=== PATIENT | female | born 1970 | race American Indian/Alaskan Native ===

== ENCOUNTER 2018-11-30 16:48 | Emergency (ER) | payer OTHER ==
[2018-11-30 16:59] VITALS: BP 139/86
--- NOTE | 2018-11-30 18:23 | Emergency Department Report ---
ED Lower Extremity HPI - General Chief Complaint: Extremity Injury, Lower Stated Complaint: LEFT LEG PAIN Time Seen by Provider: 11/30/18 18:08 Source: patient, family Mode of arrival: Ambulatory Limitations: No Limitations - History of Present Illness Initial Comments: This is a 47-year-old female came in reporting that she was horse playing around with her boyfriend and she ended up falling and landed in the split position and complaining the left thigh pain. She reports that she cannot walk because it hurt so much. Pain is 8 out of 10 and crampy and achy. Denies any head injury. Denies any bleeding or laceration or bruising. Pain is worse with movement and better at rest. She says she took Advil and went to sleep and then she woke up and still with worsening pain. MD Complaint: thigh injury, fall -: This afternoon Injury: Thigh: Left (pain after injury) Type of Injury: other (fall and landed in the split position) Place: home Severity: severe Severity scale (0 -10): 8 Improves With: rest Worsens With: weight bearing, movement, palpation Context: fall Associated Symptoms: able to partially bear weight, other (patient drove herself to the hospital). denies: snap/pop sensation, swelling, numbness, tingling Treatments Prior to Arrival: NSAIDS - Related Data Previous Rx's Medication Instructions Recorded Last Taken Type Lisinopril [Zestril TAB] 20 mg PO QDAY #30 tablet 06/19/14 Unknown Rx Sulfamethoxazole/Trimethoprim 1 each PO BID #14 tablet 06/19/14 Unknown Rx [Bactrim Ds] hydroCHLOROthiazide [Hctz] 12.5 mg PO QDAY #30 capsule 06/19/14 Unknown Rx predniSONE [Deltasone] 20 mg PO QDAY 5 Days tab 06/19/14 Unknown Rx Cyclobenzaprine [Flexeril] 10 mg PO TID PRN #12 tablet 11/30/18 Unknown Rx Ibuprofen [Motrin] 800 mg PO Q8HR PRN #12 tablet 11/30/18 Unknown Rx Allergies Allergy/AdvReac Type Severity Reaction Status Date / Time codeine Allergy Itching Verified 06/19/14 11:56 ED Review of Systems ROS: Stated complaint: LEFT LEG PAIN Other details as noted in HPI Constitutional: denies: chills, fever Respiratory: denies: cough, shortness of breath, wheezing Cardiovascular: denies: chest pain, palpitations, edema, syncope Gastrointestinal: denies: abdominal pain, nausea, vomiting Genitourinary: denies: hematuria Musculoskeletal: arthralgia, myalgia. denies: back pain, joint swelling Skin: denies: rash Neurological: abnormal gait. denies: headache, weakness, numbness, paresthesias, vertigo ED Past Medical Hx - Past Medical History Previous Medical History?: Yes Hx Hypertension: Yes - Surgical History Past Surgical History?: Yes Additional Surgical History: partial hysterectomy - Family History Family history: hypertension - Social History Smoking Status: Current Every Day Smoker Substance Use Type: Alcohol - Medications Home Medications: Home Medications Medication Instructions Recorded Confirmed Last Taken Type Lisinopril [Zestril TAB] 20 mg PO QDAY #30 tablet 06/19/14 Unknown Rx Sulfamethoxazole/Trimethoprim 1 each PO BID #14 tablet 06/19/14 Unknown Rx [Bactrim Ds] hydroCHLOROthiazide [Hctz] 12.5 mg PO QDAY #30 capsule 06/19/14 Unknown Rx predniSONE [Deltasone] 20 mg PO QDAY 5 Days tab 06/19/14 Unknown Rx Cyclobenzaprine [Flexeril] 10 mg PO TID PRN #12 tablet 11/30/18 Unknown Rx Ibuprofen [Motrin] 800 mg PO Q8HR PRN #12 tablet 11/30/18 Unknown Rx ED Physical Exam - General Limitations: No Limitations General appearance: alert, in no apparent distress - Head Head exam: Present: atraumatic, normocephalic, normal inspection, other (normal exam) - Eye Eye exam: Present: normal appearance, PERRL, EOMI Pupils: Present: normal accommodation - ENT ENT exam: Present: normal exam, normal orophraynx, mucous membranes moist - Neck Neck exam: Present: normal inspection, full ROM, other (no C-spine tenderness). Absent: tenderness - Respiratory Respiratory exam: Present: normal lung sounds bilaterally. Absent: respiratory distress, chest wall tenderness - Cardiovascular Cardiovascular Exam: Present: normal rhythm, tachycardia, normal heart sounds - GI/Abdominal GI/Abdominal exam: Present: soft, normal bowel sounds. Absent: distended, tenderness, rigid - Expanded Lower Extremity Exam Left Hip exam: Present: normal inspection, tenderness (Posterior left thigh), pelvic stability. Absent: full ROM (100 range of motion to left lower extremity due to pain after injury to left thigh), swelling, abrasion, laceration, ecchymosis, deformity, crepidus, dislocation, erythema, external rotation, internal rotation, shortening Upper Leg exam: Present: normal inspection, tenderness (Posterior thigh). Absent: full ROM (Limited range of motion to left lower extremity due to left thigh pain after fall and), swelling, abrasion, laceration, ecchymosis, deformity, crepidus, dislocation, erythema Knee exam: Present: normal inspection, full ROM, full knee extension. Absent: tenderness, swelling, abrasion, laceration, ecchymosis, deformity, crepidus, dislocation, erythema, effusion, pain w/ pronation/supination, posterior draw sign, pain/laxity with valgus, pain/laxity with varus Lower Leg exam: Present: normal inspection, full ROM. Absent: tenderness, swelling, abrasion, laceration, ecchymosis, deformity, crepidus, dislocation, erythema, palpable cord, Rashaad's sign Ankle exam: Present: normal inspection, full ROM. Absent: tenderness, swelling, abrasion, laceration, ecchymosis, deformity, crepidus, dislocation, erythema, anterior draw sign Foot/Toe exam: Present: normal inspection, full ROM. Absent: tenderness, swelling, abrasion, laceration, ecchymosis, deformity, crepidus, dislocation, erythema, amputation, puncture wound, foreign body, calcaneal tenderness, tenderness at base of 5th metatarsal, nail avulsion, subungual hematoma Neuro vascular tendon exam: Present: no vascular compromise. Absent: pulse deficit, abnormal cap refill, motor deficit, sensory deficit, tendon deficit, extremity cold to touch, pallor, abnormal 2-point discrimination, decreased fine/light touch, foot drop, peroneal nerve deficit, significant pain with passive ROM of distal joint Gait: Positive: antalgic - Back Exam Back exam: Present: normal inspection, full ROM. Absent: tenderness, muscle spasm, paraspinal tenderness, vertebral tenderness, rash noted - Neurological Exam Neurological exam: Present: alert, oriented X3, abnormal gait (patient limp. Left lower extremity due to pain and injury), reflexes normal. Absent: motor sensory deficit - Psychiatric Psychiatric exam: Present: normal affect, normal mood - Skin Skin exam: Present: warm, dry, intact, normal color. Absent: rash ED Course Vital Signs 11/30/18 11/30/18 16:57 20:16 Temperature 100.2 F H Pulse Rate 119 H 84 Respiratory 20 Rate Blood Pressure 139/86 O2 Sat by Pulse 100 Oximetry Vital Signs 11/30/18 16:57 Temperature 100.2 F H Pulse Rate 119 H Respiratory 20 Rate Blood Pressure 139/86 O2 Sat by Pulse 100 Oximetry Vital Signs 11/30/18 11/30/18 16:57 20:16 Temperature 100.2 F H Pulse Rate 119 H 84 Respiratory 20 Rate Blood Pressure 139/86 O2 Sat by Pulse 100 Oximetry - Reevaluation(s) Reevaluation #1: 11/30/18 20:07 Patient was given Benadryl milligrams by mouth and Zofran 8 mg ODT prior to narcotics because she says she gets itching and codeine. She was given Georgiana 5/325 mg and Ativan 1 mg by mouth for pain and muscle relaxer and she is feeling better. Himanshu wrap and crutches please refer to procedure note for details. - Orthopedic Splinting/Casting Injury #1 Side: left Lower Extremity Injury Location: lower leg (thigh) Lower Extremity Immobilizer: Himanshu wrap Other Orthopedic Equipment: crutches Additional Comments: Patient will good color, sensation, movement and temperature to extremities. +2 pedal pulses bilaterally. ED Lower Extremity MDM - Radiology Data Radiology results: report reviewed X-ray of left femur shows no acute bony abnormality or soft tissue swelling Findings [facility] [address] [place] [address] XRay Report Signed Patient: MARYAN HEMPHILL MR#: [id number] : 1970 Acct:[id number] Age/Sex: 47 / F ADM Date: 11/30/18 Loc: ED Attending Dr: Ordering Physician: DRAGAN MONIQUE Date of Service: 11/30/18 Procedure(s): XR femur 2+V LT Accession Number(s): [id number] cc: DRAGAN MONIQUE Fluoro Time In Minutes: FINAL REPORT EXAM: XR FEMUR 2+V LT HISTORY: Left posterior femur pain/injury TECHNIQUE: AP and lateral views of the left femur PRIORS: None. FINDINGS: There is no evidence for acute fracture or dislocation. No soft tissue swelling or radiopaque foreign bodies are seen. Bony mineralization is normal and joint spaces are maintained. Large spur is present off the superior anterior patella. IMPRESSION: No acute bony or soft tissue abnormality noted. Transcribed By: [facility] Dictated By: CAITLIN HAWK MD Electronically Authenticated By: CAITLIN HAWK MD Signed Date/Time: 11/30/181922 DD/ 24 TD/TT: 11/30/181924 - Medical Decision Making This is a 47-year-old female here report that she injured her left thigh after she accidentally fell and split position. She is complaining the pain. Patient was given Benadryl, 5/325 mg 2 tablets by mouth, zofran 8 mg odt to prevent nausea and ativan 1 mg by mouth to relax thigh muscle. After evaluation patient's says she was feeling a lot better pain has diminished. She had x-ray of her left femur which is dictated by radiologist and report reviewed by myself and showed no soft tissue injury or bony abnormalities. This was communicated to patient. I discussed diagnosis, medication and treatment plan and that she will need to follow-up with orthopedic doctor primary care physician. I also discussed with her rice therapy and please refer to procedure note for details on splinted. Patient vital signs stable she is afebrile and discharged home in stable condition and pain has controlled with prescription for Motrin and Flexeril. - Differential Diagnosis fracture, torn hamstring, muscle strain, musculoskeletal pain Critical care attestation.: If time is entered above; I have spent that time in minutes in the direct care of this critically ill patient, excluding procedure time. ED Disposition Clinical Impression: Muscle strain of thigh Qualifiers: Encounter type: initial encounter Laterality: left Qualified Code(s): S76.912A - Strain of unspecified muscles, fascia and tendons at thigh level, left thigh, initial encounter Accidental fall Qualifiers: Encounter type: initial encounter Qualified Code(s): W19.XXXA - Unspecified fall, initial encounter Disposition: - TO HOME OR SELFCARE Is pt being admited?: No Does the pt Need Aspirin: No Condition: Stable Instructions: Muscle Strain (ED), RICE Therapy (ED) Additional Instructions: Please follow up with orthopedic doctor in 2 days regarding in muscle strain of your thigh. See Discharge instruction on Rice therapy Medication as prescribed please not to have or operate heavy machinery while taking in Ultram or Flexeril as this medication can cause drowsiness Her condition worsens, return to the emergency room Follow up with primary care doctor in 2-3 days No weightbearing to left lower extremity for at least 72 hours and please rest and elevate the area for 72 hours. Prescriptions: Cyclobenzaprine [Flexeril] 10 mg PO TID PRN #12 tablet PRN Reason: Muscle Spasm Ibuprofen [Motrin] 800 mg PO Q8HR PRN #12 tablet PRN Reason: pain Referrals: GUY SO MD [Staff Physician] - 12/02/18 [facility] [Outside] - 12/03/18 Forms: Work/School Release Form(ED)
[2018-11-30] MEDS ORDERED: ATIVAN PO ONE (18:31)
[2018-11-30] MEDS ORDERED: ZOFRAN ODT PO ONE (18:32)
[2018-11-30] MEDS ORDERED: NORCO 5/325 PO ONE (18:32)
[2018-11-30] MEDS ORDERED: BENADRYL PO ONE (18:34)
--- NOTE | 2018-11-30 19:23 | XRay Report ---
FINAL REPORT EXAM: XR FEMUR 2+V LT HISTORY: Left posterior femur pain/injury TECHNIQUE: AP and lateral views of the left femur PRIORS: None. FINDINGS: There is no evidence for acute fracture or dislocation. No soft tissue swelling or radiopaque foreign bodies are seen. Bony mineralization is normal and joint spaces are maintained. Large spur is presen t off the superior anterior patella. IMPRESSION: No acute bony or soft tissue abnormality noted.
== END 2018-11-30 21:21 | disposition home or self-care (01) ==
LOC: ED 16:48
DX: S76.912A Strain of unspecified muscles, fascia and tendons at thigh level, left thigh, initial encounter (principal); I10 Essential (primary) hypertension; F17.200 Nicotine dependence, unspecified, uncomplicated; Z90.711 Acquired absence of uterus with remaining cervical stump; Z88.5 Allergy status to narcotic agent; W18.39XA Other fall on same level, initial encounter; Y93.69 Activity, other involving other sports and athletics played as a team or group; Y92.098 Other place in other non-institutional residence as the place of occurrence of the external cause; Y99.8 Other external cause status
CPT/HCPCS: 99284; Q0162

== ENCOUNTER 2019-03-20 17:25 | Emergency (ER) | payer OTHER ==
--- NOTE | 2019-03-20 17:40 | Emergency Department Report ---
Blank Doc - Documentation Documentation: 48 y/o female comes in states her neck has locked today.
--- NOTE | 2019-03-20 19:00 | XRay Report ---
PROCEDURE: XR SPINE CERVICAL 2-3V TECHNIQUE: AP, lateral, and odontoid views of the cervical spine HISTORY: neck pain and stiffness. No history of trauma COMPARISONS: None . FINDINGS: There is prominence of the prevertebral soft tissues of uncertain significance. CT is recommended. The anterior spurs at C4 and C5 appear fractured, however, age of these findings is uncertain and may be remote. No soft tissue swelling over this area is seen. 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 Otherwise, the vertebral body heights and disc spaces are well maintained. The alignment is normal. T he odontoid is intact. IMPRESSION: 1. Prominent prevertebral soft tissues. CT is recommended. 2. Fractures of the anterior spurs at C4 and C5, however, age of these appears uncertain and may be r emote. 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 This document is electronically signed by Shereen Dexter MD., Mar 20 2019 06:58:20 PM ET
[2019-03-20] MEDS ORDERED: VALIUM IV ONE (20:30)
[2019-03-20] MEDS ORDERED: TORADOL IV ONE (20:30)
[2019-03-20] MEDS ORDERED: XYLOCAINE CARDIAC IV ONE (20:30)
[2019-03-20] MEDS ORDERED: XYLOCAINE TOPICAL 4% TP ONE (20:33)
--- NOTE | 2019-03-20 20:33 | Emergency Department Report ---
ED General Adult HPI - General Chief complaint: Neck Pain/Injury Stated complaint: EXTREME SPASM/STIFFNESS Time Seen by Provider: 03/20/19 20:21 Source: patient, RN notes reviewed, old records reviewed Mode of arrival: Ambulatory Limitations: No Limitations - History of Present Illness Initial comments: This is a 48-year-old female. The patient is not known to this provider previously. Her primary care doctor is Dr. Patsy Rangel Asked medical history includes hypertension. The patient presents to the emergency room with the complaint of nontraumatic ne ck pain and difficulty swallowing. The symptoms started 3-4 days ago. The pain increases with palpation, range of motion, and it decreases with rest. There is no stridor. There is no drooling. The patient reports that she has to "work hard" to swallow air. In the emergency room, she was treated with Toradol, Valium, intravenous lidocaine, intranasal lidocaine, all of which markedly improved her symptoms. She denies extremity weakness, bladder or bowel retention, incontinence, saddle anesthesia. -: Gradual Location: neck Severity scale (0 -10): 8 Quality: aching Consistency: intermittent Improves with: rest Worsens with: movement - Related Data Previous Rx's Medication Instructions Recorded Last Taken Type Lisinopril [Zestril TAB] 20 mg PO QDAY #30 tablet 06/19/14 Unknown Rx Sulfamethoxazole/Trimethoprim 1 each PO BID #14 tablet 06/19/14 Unknown Rx [Bactrim Ds] hydroCHLOROthiazide [Hctz] 12.5 mg PO QDAY #30 capsule 06/19/14 Unknown Rx predniSONE [Deltasone] 20 mg PO QDAY 5 Days tab 06/19/14 Unknown Rx Cyclobenzaprine [Flexeril] 10 mg PO TID PRN #12 tablet 11/30/18 Unknown Rx Ibuprofen [Motrin] 800 mg PO Q8HR PRN #12 tablet 11/30/18 Unknown Rx Allergies Allergy/AdvReac Type Severity Reaction Status Date / Time codeine Allergy Itching Verified 03/20/19 17:26 ED Review of Systems ROS: Stated complaint: EXTREME SPASM/STIFFNESS Other details as noted in HPI Constitutional: denies: fever, malaise Eyes: denies: vision change ENT: throat pain. denies: ear pain, dental pain, hearing loss, epistaxis, congestion Respiratory: denies: cough Cardiovascular: denies: chest pain Gastrointestinal: denies: abdominal pain Genitourinary: denies: dysuria Musculoskeletal: myalgia Skin: denies: lesions Neurological: denies: headache, weakness Psychiatric: anxiety ED Past Medical Hx - Past Medical History Hx Hypertension: Yes - Surgical History Additional Surgical History: partial hysterectomy - Social History Smoking Status: Never Smoker Substance Use Type: None - Medications Home Medications: Home Medications Medication Instructions Recorded Confirmed Last Taken Type Lisinopril [Zestril TAB] 20 mg PO QDAY #30 tablet 06/19/14 Unknown Rx Sulfamethoxazole/Trimethoprim 1 each PO BID #14 tablet 06/19/14 Unknown Rx [Bactrim Ds] hydroCHLOROthiazide [Hctz] 12.5 mg PO QDAY #30 capsule 06/19/14 Unknown Rx predniSONE [Deltasone] 20 mg PO QDAY 5 Days tab 06/19/14 Unknown Rx Cyclobenzaprine [Flexeril] 10 mg PO TID PRN #12 tablet 11/30/18 Unknown Rx Ibuprofen [Motrin] 800 mg PO Q8HR PRN #12 tablet 11/30/18 Unknown Rx ED Physical Exam - General Limitations: Physical Limitation General appearance: alert, anxious - Head Head exam: Present: atraumatic, normocephalic - Eye Eye exam: Present: normal appearance, EOMI. Absent: nystagmus - ENT ENT exam: Present: normal exam, normal orophraynx, mucous membranes moist, TM's normal bilaterally, normal external ear exam - Neck Neck exam: Present: normal inspection, tenderness, full ROM, other (there is reproducible trapezius and paracervical tenderness). Absent: meningismus - Respiratory Respiratory exam: Present: normal lung sounds bilaterally. Absent: respiratory distress - Cardiovascular Cardiovascular Exam: Present: regular rate, normal rhythm, normal heart sounds. Absent: bradycardia, tachycardia, irregular rhythm, systolic murmur, diastolic murmur, rubs, gallop - GI/Abdominal GI/Abdominal exam: Present: soft. Absent: distended, tenderness, guarding, rebound, rigid, pulsatile mass - Extremities Exam Extremities exam: Present: normal inspection, full ROM, other (2+ pulses noted in the bilateral upper, lower extremities. Compartments soft. No long bony tenderness. The pelvis is stable.). Absent: pedal edema, joint swelling, calf tenderness - Back Exam Back exam: Present: normal inspection, full ROM, paraspinal tenderness. Absent: tenderness, CVA tenderness (R), vertebral tenderness - Neurological Exam Neurological exam: Present: alert, oriented X3, normal gait, other (Extraocular movements intact. Tongue midline. No facial droop. Facial sensation intact to light touch in the V1, V2, V3 distribution bilaterally. 5 and 5 strength in 4 extremities.. Sensation is intact to light touch in 4 extremities.). Absent: motor sensory deficit (sensation intact to light touch, pinch, proprioception and the upper, lower extremities bilaterally) - Psychiatric Psychiatric exam: Present: anxious - Skin Skin exam: Present: warm, dry, intact, normal color. Absent: rash ED Course Vital Signs 03/20/19 03/20/19 03/20/19 17:31 20:11 20:49 Temperature 98.6 F 98.6 F Pulse Rate 109 H 100 H Respiratory 20 15 21 Rate Blood Pressure 178/108 Blood Pressure 143/105 [Right] O2 Sat by Pulse 98 97 Oximetry ED Medical Decision Making - Lab Data Result diagrams: 03/20/19 20:38 Vital Signs 03/20/19 03/20/19 03/20/19 17:31 20:11 20:49 Temperature 98.6 F 98.6 F Pulse Rate 109 H 100 H Respiratory 20 15 21 Rate Blood Pressure 178/108 Blood Pressure 143/105 [Right] O2 Sat by Pulse 98 97 Oximetry Lab Results 03/20/19 03/20/19 03/20/19 Range/Units 20:38 20:38 20:38 Sodium 137 (137-145) mmol/L Potassium 3.6 (3.6-5.0) mmol/L Chloride 96.7 L (98-107) mmol/L Carbon Dioxide 24 (22-30) mmol/L Anion Gap 20 mmol/L BUN 11 (7-17) mg/dL Creatinine 0.6 L (0.7-1.2) mg/dL Estimated GFR > 60 ml/min BUN/Creatinine Ratio 18 % Glucose 97 (65-100) mg/dL Calcium 9.4 (8.4-10.2) mg/dL Total Creatine Kinase 116 (30-135) units/L HCG, Quant 1.15 (0-4) mIU/mL - Radiology Data Radiology results: report reviewed, image reviewed Print Report Referring Physician: ANTONIO YAÑEZ Patient Name: MARYAN HEMPHILL Date of : 1970 Sex: Female Report Date: 2019-03-20 Report Status: Finalized Findings [facility] [address] [place] [address] XRay Report Signed with Addenda Patient: MARYAN HEMPHILL MR#: [id number] : 1970 Acct:[id number] Age/Sex: 48 / F ADM Date: 03/20/19 Loc: ED Attending Dr: Ordering Physician: DRAGAN NOYOLA Date of Service: 03/20/19 Procedure(s): XR spine cervical 2-3V Accession Number(s): [id number] cc: DRAGAN NOYOLA Fluoro Time In Minutes: ADDENDUM ADDENDUM: CRITICAL RESULT: These findings were discussed directly with MARISSA Whitley by phone at 6:54 PM EST on 03/20/2019 . This document is electronically signed by Shereen Dexter MD., Mar 20 2019 07:02:30 PM ET Addendum Transcribed By: [facility] Addendum Dictated By: SHEREEN DEXTER MD Addendum Electronically Authenticated By: SHEREEN DEXTER MD Addendum Signed Date/Time: 03/20/191903 DD/ /29/1750 TD/TT: 03/20/1908/29/1810 PROCEDURE: XR SPINE CERVICAL 2-3V TECHNIQUE: AP, lateral, and odontoid views of the cervical spine HISTORY: neck pain and stiffness. No history of trauma COMPARISONS: None . FINDINGS: There is prominence of the prevertebral soft tissues of uncertain significance. CT is recommended. The anterior spurs at C4 and C5 appear fractured, however, age of these findings is uncertain and may be remote. No soft tissue swelling over this area is seen. 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 Otherwise, the vertebral body heights and disc spaces are well maintained. The alignment is normal. The odontoid is intact. IMPRESSION: 1. Prominent prevertebral soft tissues. CT is recommended. 2. Fractures of the anterior spurs at C4 and C5, however, age of these appears uncertain and may be remote. 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 This document is electronically signed by Shereen Dexter MD., Mar 20 2019 06:58:20 PM ET Transcribed By: [facility] Dictated By: SHEREEN DEXTER MD Electronically Authenticated By: SHEREEN DEXTER MD Signed Date/Time: 03/20/19 190 Referring Physician: ANIL CHISHOLM Patient Name: MARYAN HEMPHILL Date of : 1970 Sex: Female Report Date: 2019-03-20 Report Status: Finalized Findings [facility] [address] [id number] Cat Scan Report Signed Patient: MARYAN HEMPHILL MR#: [id number] : 1970 Acct:[id number] Age/Sex: 48 / F ADM Date: 03/20/19 Loc: ED Attending Dr: Ordering Physician: ANIL CHISHOLM MD Date of Service: 03/20/19 Procedure(s): CT neck w con Accession Number(s): [id number] cc: ANIL CHISHOLM MD PROCEDURE: CT NECK W CON TECHNIQUE: Following administration of IV contrast axial helical imaging was performed through the neck with sagittal and coronal reformatted images obtained. HISTORY: neck pain no history of trauma. Some pain with swallowing. COMPARISONS: CT cervical spine performed earlier today. FINDINGS: There is an abnormal low attenuation collection in the prevertebral soft tissues that extends from the level of C1 inferiorly to the level of the hyoid/C4-C5 disc space. This measures approximately 0.8 cm (AP) by 2.2 cm (lateral) by 5.8 cm (craniocaudal) the maximal dimensions. This results in a mild degree of mass effect on the posterior wall of the pharynx. The Hounsfield units are consistent with complex fluid, either proteinaceous content or blood products. There are mildly prominent bilateral cervical lymph nodes. None demonstrate necrosis. There is normal enhancement of the major cervical vascular structures. The paranasal sinuses are unremarkable. The bony structures are notable for cervical spondylosis with multiple level moderate to marked canal and foraminal stenosis secondary to spondylitic change. There is failure of segmentation/block vertebra at C3-C4. There is no evidence of fracture. There are multiple level anterior endplate osteophytes. IMPRESSION: 1. Abnormal prevertebral collection that extends from C1 inferiorly to the level of the C4-C5 disc space. The Hounsfield units are consistent with complex fluid, either proteinaceous content (infection) or blood products. MRI without and with gadolinium may be helpful for further evaluation. This finding was discussed with Dr. Dr. Chisholm at 10:35 PM March 20, 2019. 2. Mildly prominent cervical lymph nodes. 3. Cervical spondylosis with multiple level canal and foraminal stenosis. 4. No evidence of fracture. This document is electronically signed by Marilyn Swenson MD., Mar 20 2019 10:40:18 PM ET Transcribed By: ED Dictated By: MARILYN SWENSON MD Electronically Authenticated By: MARILYN SWENSON MD Signed Date/Time: 03/20/19 5986 - Medical Decision Making Differential diagnosis, including but not limited to: Torticollis, tonsillitis, or vertebral edema, prevertebral deep space infection Assessment and plan: 48-year-old female with complaints of neck pain after sleeping incorrectly, reproducible, with limited range of motion of the neck initially. The patient is afebrile with reassuring vital signs. She has no indication of imminent epidural or cervical cord compression syndrome. She felt much improved after initial therapeutic measures. She is protecting her airway at this time, and has no stridor. She endorses nonspecific difficulty with swallowing and with breathing. CT scan of the neck demonstrated a number of concerning findings Abnormal prevertebral collection that extends from C1 inferiorly to the level of the C4-C5 disc space. The Hounsfield units are consistent with complex fluid, either proteinaceous content (infection) or blood products. MRI without and with gadolinium may be helpful for further evaluation. This finding was discussed with Dr. Dr. Chisholm at 10:35 PM March 20, 2019. 2. Mildly prominent cervical lymph nodes. 3. Cervical spondylosis with multiple level canal and foraminal stenosis. 4. No evidence of fracture. This hospital does not have otolaryngology consulting services associate for consultation. The patient has a potentially emergent medical condition cannot be definitively managed at this hospital as we do not have the necessary available subspecialty resources. Contacted [facility], and discussed the case with their cream dumper consulting services associate, Dr. Arpan Babb, who agreed to follow in consultation, and the hospital physician consulting services associate, Dr. Mora, who has admitted the patient to the medical service. Patient will be given steroids and antibiotics. She will remain nothing by mouth. I discussed the patient's laboratory studies and CT scan findings with the patient. I have instructed the patient that we strongly recommended transfer for definitive management. The patient verbalizes understanding, and gives verbal and written permission for transfer. The patient at this point in time has been made comfortable, she is hemodynamically stable, and she is medically suitable for transport to the receiving facility for definitive care. Critical Care Time: Yes Critical care time in (mins) excluding proc time.: 45 Critical care attestation.: If time is entered above; I have spent that time in minutes in the direct care of this critically ill patient, excluding procedure time. ED Disposition Clinical Impression: Neck pain [facility] IP Is pt being admited?: No Does the pt Need Aspirin: No Condition: Good Referrals: FAYE SANTOS MD [Primary Care Provider] - 3-5 Days
[2019-03-20 21:00] LABS: BUN/Creatinine Ratio 18; Blood Urea Nitrogen 11 mg/dL (7-17); Calcium 9.4 mg/dL (8.4-10.2); Hemolysis Index 9
[2019-03-20] MEDS ORDERED: NACL 0.9% IV SCH (21:30)
[2019-03-20] MEDS ORDERED: NACL 0.9% 50 ML ONE (21:51)
[2019-03-20] MEDS ORDERED: DECADRON IV ONE (22:34)
[2019-03-20] MEDS ORDERED: UNASYN/NS 3 GM/100 ML 3 GM/100 ML BAG IV ONE (22:34)
--- NOTE | 2019-03-20 22:42 | Cat Scan Report ---
PROCEDURE: CT NECK W CON TECHNIQUE: Following administration of IV contrast axial helical imaging was performed through the n jackie with sagittal and coronal reformatted images obtained. HISTORY: neck pain no history of trauma. Some pain with swallowing. COMPARISONS: CT cervical spine performed earlier today. FINDINGS: There is an abnormal low attenuation collection in the prevertebral soft tissues that extends from th e level of C1 inferiorly to the level of the hyoid/C4-C5 disc space. This measures approximately 0.8 cm (AP) by 2.2 cm (lateral) by 5.8 cm (craniocaudal) the maximal dime nsions. This results in a mild degree of mass effect on the posterior wall of the pharynx. The Hounsfield units are consistent with complex fluid, either proteinaceous content or blood product s. There are mildly prominent bilateral cervical lymph nodes. None demonstrate necrosis. There is normal enhancement of the major cervical vascular structures. The paranasal sinuses are unremarkable. The bony structures are notable for cervical spondylosis with multiple level moderate to marked canal and foraminal stenosis secondary to spondylitic change. There is failure of segmentation/block vertebra at C3-C4. There is no evidence of fracture. There are multiple level anterior endplate osteophytes. IMPRESSION: 1. Abnormal prevertebral collection that extends from C1 inferiorly to the level of the C4-C5 disc sp andreea. The Hounsfield units are consistent with complex fluid, either proteinaceous content (infection) or blood products. MRI without and with gadolinium may be helpful for further evaluation. This finding was discussed with Dr. Dr. Chisholm at 10:35 PM March 20, 2019. 2. Mildly prominent cervical lymph nodes. 3. Cervical spondylosis with multiple level canal and foraminal stenosis. 4. No evidence of fracture. This document is electronically signed by Marilyn Swenson MD., Mar 20 2019 10:40:18 PM ET
[2019-03-20 23:15] LABS: Basophils # (Auto) 0.1 K/mm3 (0.0-0.1); Basophils % (Auto) 0.7 % (0.0-1.8); Eosinophils # (Auto) 0.1 K/mm3 (0.0-0.4); Eosinophils % (Auto) 1.3 % (0.0-4.3); Hematocrit 40.4 % (30.3-42.9); Hemoglobin 13.8 gm/dl (10.1-14.3); Lymphocytes # (Auto) 2.6 K/mm3 (1.2-5.4); Mean Corpuscular HGB Conc 34 % (30-34); Mean Corpuscular Volume 87 fl (79-97); Monocytes # (Auto) 0.8 K/mm3 (0.0-0.8); Monocytes % (Auto) 9.6 % (0.0-7.3); Platelet Count 347 K/mm3 (140-440); Red Blood Count 4.66 M/mm3 (3.65-5.03); Red Cell Distribution Width 15.2 % (13.2-15.2)
[2019-03-21 02:02] VITALS: BP 119/70
== END 2019-03-21 02:03 | disposition short-term general hospital (02) ==
LOC: ED 17:25
DX: M54.2 Cervicalgia (principal); R13.10 Dysphagia, unspecified; I10 Essential (primary) hypertension; Z90.711 Acquired absence of uterus with remaining cervical stump; Z88.5 Allergy status to narcotic agent
CPT/HCPCS: 36415; 70491; 72040; 80048; 82140; 82550; 84702; 85025; 87040; 96365; 96366; 96375; 99291; J0295; J1100; J1885; J2001; J3360; Q9967